=== PATIENT | male | born 1950 | race Caucasian/White ===

== ENCOUNTER 2019-05-07 10:09 | Day surgery (SDC) | payer MEDICARE ==
[~2019-05-07 10:09] MED LIST: BUPIVACAINE HCL 0.75% INJ/PF (7.5 MG/1 ML) 10 ML SDV OD PRN; CHONDR SU A NA/HYALUR INTRAOC KIT (SURGICARE) ONE; DORZOLAMIDE HCL 2%/TIMOLOL MALEAT 0.5% OPH SOLN 10 ML OD PRN; EPINEPHRINE INJ/PF 1 MG/1 ML AMPULE ONE; KETOROLAC TROMETHAMINE 0.45% 4 DROP/0.4 ML DROPERETTE OD PRN; LIDOCAINE 1% INJ-PF (10 MG/ML) 30 ML SDV ONE; LIDOCAINE 4% INJ/PF (40 MG/ML) 5 ML AMPUL OD PRN
[2019-05-07] MEDS: TROPICAMIDE 1% OPH SOLN 3 ML OD PRN ×3 (10:57→11:18)
[2019-05-07] MEDS: CYCLOPENTOLATE 0.2%/PHENYLEPHRINE 1% OPH SOLN 2 ML OD PRN ×3 (10:57→11:18)
[2019-05-07] MEDS: BESIFLOXACIN HCL 0.6% OPH SUSP 5 ML BOTTLE OD PRN ×4 (10:57→12:07)
[2019-05-07] MEDS: TETRACAINE HCL 0.5% OPH SOLN 0.6 ML DROPERETTE OD PRN ×3 (10:58→11:38)
[2019-05-07] MEDS ORDERED: FENTANYL CITRATE INJ/PF 100 MCG/2 ML AMPUL ONE (11:26)
[2019-05-07] MEDS ORDERED: MIDAZOLAM 2 MG/2 ML INJ ONE (11:26)
[2019-05-07] MEDS: LIDOCAINE 1%/PHENYLEPHRINE 1.5% 1 ML VIAL ONE ×2 (11:45→11:49)
[2019-05-07] MEDS: TOBRAMYCIN SULFATE/DEXAMETH OPH OINTMENT 3.5 GM ONE ×2 (11:50→12:07)
[2019-05-07] MEDS: TRYPAN BLUE 0.06 % OPH SOLN 0.5 ML DISP.SYRIN ONE ×2 (11:50→11:51)
[2019-05-07] MEDS ORDERED: CHONDR SU A NA/HYALUR SOD 0.5 ML DISP.SYRIN ONE (12:14)
== END 2019-05-07 13:00 | disposition home or self-care (01) ==
LOC: SC 10:09
PROVIDERS: ATTEND Ophthalmology
DX: H25.11 Age-related nuclear cataract, right eye (principal); H40.1112 Primary open-angle glaucoma, right eye, moderate stage; F17.210 Nicotine dependence, cigarettes, uncomplicated
CPT/HCPCS: 0191T; 66982; 140; C1783; J0171; J2250; J2370; J3010; J3490; V2632